=== PATIENT | female | born 1960 | race Caucasian/White ===

== ENCOUNTER 2017-06-22 12:32 | Emergency (ER) | payer BC, OTHER ==
[~2017-06-22] VITALS: Ht 165.1 cm; Wt 84.4 kg
[~2017-06-22 12:32] MED LIST: ASPI81TA21 PO; CRS/10 PO; MULT-506 PO
[2017-06-22 12:35] VITALS: TEMP 36.7; Ht 165.1 cm; Wt 84.4 kg
[2017-06-22] MEDS ORDERED: OXYCODONE/ACETAMINOPHEN 5-325 TAB PO ONE (13:45)
[2017-06-22] MEDS ORDERED: XYLOCAINE 1%/SOD BICARB 20 ML VIAL INFIL ONE (13:45)
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
[2017-06-22] MEDS ORDERED: OXYC-57 PO (15:26)
[2017-06-22 15:36] VITALS: BP 135/63; PULSE 72; O2SAT 95
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
== END 2017-06-22 15:37 | disposition home or self-care (01) ==
LOC: C.EDB 12:33 → C.EDD 15:37
DX: S52.134A Nondisplaced fracture of neck of right radius, initial encounter for closed fracture (principal); S61.412A Laceration without foreign body of left hand, initial encounter; V18.0XXA Pedal cycle driver injured in noncollision transport accident in nontraffic accident, initial encounter; E78.5 Hyperlipidemia, unspecified; Z90.710 Acquired absence of both cervix and uterus; Z79.82 Long term (current) use of aspirin; Z79.899 Other long term (current) drug therapy

== ENCOUNTER 2024-03-27 14:30 | Inpatient (IN) ==
--- NOTE | 2024-03-27 14:44 | ED Triage Note ---
Date of Service March 27, 2024 Provider in Triage Author: Ruma Jeronimo History of Present Illness This patient was briefly evaluated while in triage. An abbreviated physical exam was performed. This patient is a 63-year-old Female who presents to the ED for evaluation of abdominal pain. She had a telehealth appointment yesterday and they recommended she try Miralax which has not helped. She states it feels like a bloating/pressure in the lower center of her abdomen. She reports it is worse with BMs. Denies any fevers, vomiting, urinary symptoms. Physical Exam GENERAL: Non-toxic and in no acute distress. HEENT: Pupils equal. No obvious scleral icterus. HEART: Regular rate and rhythm. LUNGS: Clear to auscultation. No accessory muscle use. ABDOMEN: Soft, tenderness in the suprapubic region. NEURO: Alert and oriented. No obvious neurological deficits on quick neuro exam. Initial orders for labs and / or imaging were placed and patient was placed in the waiting area until a bed is available. Please see further documentation for the full ED course.
--- NOTE | 2024-03-27 16:13 | Emergency Department Note ---
ED Provider Note History of Present Illness Chief Complaint: Abdominal Pain Stated Complaint: ABD PAIN Time Seen by Provider: 03/27/24 15:47 Source: patient Mode of arrival: ambulatory Limitations: no limitations This patient is a 63-year-old female who presents to the emergency department for evaluation of abdominal pain. She states the pain started 2 days ago. Pain is in the center of the lower abdomen. She states that it feels like a pressure/bloating sensation. Pain increases with bowel movements. He denies any fevers, nausea/vomiting or urinary symptoms. She had a telehealth appointment yesterday and they told her to try MiraLAX which she has taken. She has had a bowel movement but states this has not helped her pain. Denies any history of similar symptoms. Home Medications Medication Instructions Recorded Confirmed Type aspirin 81 mg tablet,delayed 81 mg PO QAM 03/27/24 03/27/24 History release rosuvastatin 10 mg tablet 10 mg PO QAM 03/27/24 03/27/24 History Allergies Allergy/AdvReac Type Severity Reaction Status Date / Time No Known Allergies Allergy Unverified 03/27/24 18:30 Past Med/Surg History Problem List (Updated 03/27/24 @ 22:11 by Ruma Jeronimo PA-C) Intra-abdominal abscess (Acute) Abdominal pain Abdominal fluid collection HLD (hyperlipidemia) Surgical History (Updated 03/27/24 @ 20:09 by Keisha Yates PA-C) History of total abdominal hysterectomy Hx of colonoscopy Hx of repair of rotator cuff Family History (Updated 03/27/24 @ 20:09 by Keisha Yates PA-C) Other Breast cancer Diabetes Heart disease Social History Smoking Status: Never smoker Second Hand Exposure: No; Hx Alcohol Use: Yes Alcohol type: wine Hx Substance Use: No Preferred Language: Turkish Communication Ability: Effective Brownell Operator Required: No Beliefs That Will Affect Care: None Current Living Situation: Spouse Other Information That Helps Us Care for You: No Feels Safe at Home: Yes Safety Concerns: Feels Safe At This Time Assistive Devices: Glasses Physical Exam Vital Signs Vital Signs - 24 hr 03/27/24 14:41 03/27/24 17:20 03/27/24 17:21 Temperature 36.8 C Temperature Source Temporal Artery Scan Pulse Rate 65 Pulse Rate [Finger] 66 Pulse Rate from SpO2 Sensor Respiratory Rate 18 15 Respiratory Effort / Characteristics Non-Labored Spontaneous Respiratory Depth Normal Blood Pressure 151/71 H Blood Pressure [Left Arm] 163/74 H Blood Pressure Mean 97 Blood Pressure Mean [Left Arm] 103 Blood Pressure Position Sitting Pulse Oximetry 95 94 97 Oxygen Delivery Method Room Air Room Air Sepsis Recent Fever Within 48 Hours No Sepsis New/Unexplained Change in Mental Status No Sepsis Action Taken by Nursing No Action Required 03/27/24 18:46 03/27/24 18:46 03/27/24 18:50 Temperature Temperature Source Pulse Rate 56 L 59 L 66 Pulse Rate [Finger] Pulse Rate from SpO2 Sensor 58 L 66 Respiratory Rate 15 Respiratory Effort / Characteristics Respiratory Depth Blood Pressure Blood Pressure [Left Arm] Blood Pressure Mean Blood Pressure Mean [Left Arm] Blood Pressure Position Pulse Oximetry 97 99 Oxygen Delivery Method Sepsis Recent Fever Within 48 Hours Sepsis New/Unexplained Change in Mental Status Sepsis Action Taken by Nursing 03/27/24 19:00 03/27/24 19:10 03/27/24 19:25 Temperature Temperature Source Pulse Rate 57 L 63 72 Pulse Rate [Finger] Pulse Rate from SpO2 Sensor 57 L 65 73 Respiratory Rate 16 17 Respiratory Effort / Characteristics Respiratory Depth Blood Pressure Blood Pressure [Left Arm] Blood Pressure Mean Blood Pressure Mean [Left Arm] Blood Pressure Position Pulse Oximetry 99 98 96 Oxygen Delivery Method Sepsis Recent Fever Within 48 Hours Sepsis New/Unexplained Change in Mental Status Sepsis Action Taken by Nursing VITALS: Vitals are noted on the nurse's note and reviewed by myself. GENERAL: This is a 63-year-old female, in no acute distress, well-developed well-nourished. SKIN: The skin was without rashes. EYES: Pupils equal round and reactive to light and accommodation. MOUTH: Mucous membranes moist. NECK: Supple without nuchal rigidity. HEART: Regular rate and rhythm without murmurs gallops or rubs. LUNGS: Clear to auscultation bilaterally without wheezes, rales or rhonchi. ABDOMEN: Positive bowel sounds x 4. Soft, suprapubic tenderness to palpation. No guarding or rebound tenderness. NEURO: Patient was alert and oriented to person place and time. Course Consultations Consultation #1: Dr. Arreola - general surgery Consulted with Dr. Arreola and reviewed the CT scan with him. He recommended medical admission with antibiotics and IR consult. General surgery will also consult tomorrow. Administered Medications Discontinued Medications Piperacillin Sod/Tazobactam Sod (Zosyn) 4.5 gm in 100 mls @ 200 mls/hr IV NOW ONE Stop: 03/27/24 18:40 Last Infusion: 03/27/24 20:15 Dose: Infused Documented By: Admin: 03/27/24 18:34 Dose: 200 mls/hr Documented By: IBRAHIMA Ioversol (Optiray 320 100ml) 90 ml IV ONCE ONE Stop: 03/27/24 16:57 Last Admin: 03/27/24 16:56 Dose: 90 ml Documented By: NIC Medical Decision Making Differential Diagnosis Appendicitis, ovarian cyst, ovarian torsion, ectopic , TOA, PID, infections, diverticulitis, UTI, obstruction, mesenteric ischemia, aortic pathology, inflammatory bowel disease, renal colic, PUD, pancreatitis, biliary pathology, hernia, volvulus, constipation, as well as other pathologies. Laboratory Data Attestation: I reviewed the patient's lab results. 03/27/24 16:15 03/27/24 16:15 Lab Results 03/27/24 Range/Units 16:15 WBC 8.27 (4.8-10.8) K/ul RBC 4.41 (4.20-5.40) M/uL Hgb 13.4 (12.0-16.0) g/dl Hct 39.6 (37.0-47.0) % MCV 89.8 (80.0-100.0) fL MCH 30.4 (25.0-34.0) pg MCHC 33.8 (32.0-36.0) g/dL RDW Std Deviation 40.8 (36.4-46.3) fL RDW Coeff of Mary 12.3 (11.5-14.5) % Plt Count 268 (130-400) K/uL MPV 10.3 (9.4-12.4) fL Immature Gran % (Auto) 0.2 % Neut % (Auto) 62.3 % Lymph % (Auto) 26.5 % [place] % (Auto) 6.5 % Eos % (Auto) 4.0 % Baso % (Auto) 0.5 % Neut # (Auto) 5.15 (1.40-6.50) K/uL Lymph # (Auto) 2.19 (1.20-3.40) K/uL [place] # (Auto) 0.54 (0.11-0.59) K/uL Eos # (Auto) 0.33 (0.00-0.50) K/uL Baso # (Auto) 0.04 (0.00-0.20) K/uL Immature Gran # (Auto) 0.02 (0.01-0.20) K/uL Sodium 139 (136-145) mmol/L Potassium 3.9 (3.5-5.1) mmol/L Chloride 105 (98-107) mmol/L Carbon Dioxide 27 (21-32) mmol/L Anion Gap 7 (3-11) BUN 13 (6-23) mg/dl Creatinine 0.84 (0.6-1.2) mg/dl Est Cr Clr Drug Dosing 77.0 ml/min Est GFR ( Amer) 86.9 ml/min Est GFR (Non-Af Amer) 75.0 ml/min BUN/Creatinine Ratio 15.5 (10-20) Glucose 98 (70-99(Fasting)) mg/dl Calcium 9.0 (8.6-10.3) mg/dl Total Bilirubin 0.5 (0.2-1.0) mg/dl AST 24 (13-39) U/L ALT 20 (7-52) U/L Alkaline Phosphatase 69 (34-104) U/L Total Protein 7.5 (6.0-8.3) gm/dl Albumin 4.6 (3.4-5.0) gm/dl Globulin 2.9 (2.5-4.0) gm/dl Albumin/Globulin Ratio 1.6 (0.9-2) Lipase 43 (11-82) U/L Imaging Data Attestation: I personally reviewed and interpreted this imaging study as follows: Radiologist's Impression: Abdomen/Pelvis CT 03/27/24 14:44 CT SCAN OF THE ABDOMEN AND PELVIS WITH IV CONTRAST CLINICAL HISTORY: Lower abdominal pain. COMPARISON STUDY: Abdominal CT dated 09/10/2013. TECHNIQUE: Following the IV administration of 90 cc of Optiray 320, CT scan of the abdomen and pelvis is performed from the lung bases to the proximal femora. Images are reviewed in the axial, sagittal, and coronal planes. IV contrast was administered without complication. A dose lowering technique was utilized adhering to the principles of ALARA. CT DOSE: 1366.14 mGy.cm FINDINGS: Lung bases: The heart is normal in size and without pericardial effusion. A tiny hiatal hernia is noted. The lung bases are clear noting dependent scarring/atelectasis. Liver: The contrast-enhanced liver is normal in size, contour, and attenuation. Fatty infiltration is noted adjacent to the falciform ligament. There is no intrahepatic biliary ductal dilatation. The hepatic veins and portal veins are patent. Gallbladder: Unremarkable. Spleen: Normal in size and attenuation. Pancreas: Unremarkable. Adrenal glands: Unremarkable. Kidneys: The contrast enhanced kidneys are normal in size and without hydronephrosis. The kidneys enhance symmetrically. Abdominal vasculature: The abdominal aorta is normal in course and caliber noting [id number] atherosclerotic calcification. Bowel: There is no bowel obstruction. A small duodenal diverticulum is noted. The appendix is well-visualized and normal. Peritoneum: There is trace free fluid in the cul-de-sac. No intraperitoneal free air is identified. There is a fat-containing umbilical hernia. Lymphadenopathy: None. Pelvic viscera: The bladder is normal as visualized. The uterus is surgically absent. There is a minimal complex multiloculated fluid collection along the superior margin of the vaginal cough seen on axial image #307. This measures 5.0 x 4.1 x 6.0 cm in maximum dimension. The collection closely approximates and appears to communicate with the adjacent sigmoid colon. This is best seen on the reformatted images. Skeletal structures: There is mild lumbosacral spondylosis. No lytic or blastic lesions are seen. IMPRESSION: 1. There is a 6.0 cm minimally complex loculated fluid collection along the superior margin of the vaginal cuff. This is new from 09/10/2013 examination. The sterility of this collection cannot be evaluated by imaging and abscess is not excluded. 2. This collection closely approximates and appears to communicate with the adjacent sigmoid colon. A colovaginal fistula is not excluded. 3. Additional findings as above. ACT 112: Negative or not required by law. Electronically signed by: Josse Amin M.D. 03/27/2024 5:43 PM MDM Narrative This patient is a 63-year-old female who presents to the emergency department for evaluation of lower abdominal pain. Patient overall well-appearing, afebrile. Labs revealed no leukocytosis or anemia or concerning electrolyte abnormalities. CT performed and shows a fluid collection at the vaginal cuff with possible colovaginal fistula. I suspect that this fluid collection is an abscess given patient's new onset of pain. She was treated with a dose of Zosyn. I discussed the case with general surgery who recommended medical admission with IR and general surgery consultation. Discussed the case with [facility] service who agreed to evaluate patient for further care. Impression Intra-abdominal abscess Discharge Plan Visit Data Chief Complaint: Abdominal Pain Stated Complaint: ABD PAIN ED Provider: Kraig Reilly ED Midlevel Provider: Ruma Jeronimo Discharge Problem: Intra-abdominal abscess Patient Disposition: Admitted As Inpatient Discharge Instructions Interventions: ED Discharge Assessment Last Done: 03/27/24 20:24
[2024-03-27 16:28] LABS: Appearance Urine Clear (Clear); Bacteria Urine Automated None Seen (None Seen); Bilirubin Urine Negative (Negative); Blood Urine Negative (Negative); Cast Urine Automated 0-2 /lpf (0-2); Color Urine Yellow; Epithelial Cell Urine Auto 0-2 /hpf (0-2); Glucose Urine UA Negative (Negative); Ketones Urine Negative (Negative); Leukocyte Esterase Urine 3+ (Negative); Nitrite Urine Negative (Negative); Protein Urine Negative (Negative); RBC Urine Automated 0-2 /hpf (0-2); Specific Gravity Urine 1.005 (1.000-1.030); Urobilinogen Urine Negative (Negative)
[2024-03-27 16:29] LABS: Basophils # (auto) 0.04 K/uL (0.00-0.20); Basophils % (auto) 0.5 %; Eosinophils # (auto) 0.33 K/uL (0.00-0.50); Hematocrit (blood only) 39.6 % (37.0-47.0); Hemoglobin 13.4 g/dl (12.0-16.0); Immature Granulocytes # (auto) 0.02 K/uL (0.01-0.20); Immature Granulocytes % (auto) 0.2 %; Lymphocytes # (auto) 2.19 K/uL (1.20-3.40); Lymphocytes % (auto) 26.5 %; Mean Corpuscular Hemoglobin 30.4 pg (25.0-34.0); Mean Corpuscular Hgb Conc 33.8 g/dL (32.0-36.0); Mean Corpuscular Volume 89.8 fL (80.0-100.0); Mean Platelet Volume 10.3 fL (9.4-12.4); Monocytes # (auto) 0.54 K/uL (0.11-0.59); Monocytes % (auto) 6.5 %; Neutrophils # (auto) 5.15 K/uL (1.40-6.50); Neutrophils % (auto) 62.3 %; Platelet Count 268 K/uL (130-400); RDW Coefficient of Variation 12.3 % (11.5-14.5); RDW Standard Deviation 40.8 fL (36.4-46.3); Red Blood Count 4.41 M/uL (4.20-5.40); White Blood Count 8.27 K/ul (4.8-10.8)
[2024-03-27 16:45] LABS: Albumin Globulin Ratio 1.6 (0.9-2); Albumin Level 4.6 gm/dl (3.4-5.0); BUN Creatinine Ratio 15.5 (10-20); Bilirubin,Total 0.5 mg/dl (0.2-1.0); Est GFR (African American) 86.9 ml/min; Globulin 2.9 gm/dl (2.5-4.0); Potassium 3.9 mmol/L (3.5-5.1); Total Protein 7.5 gm/dl (6.0-8.3)
[2024-03-27] MEDS: OPTIRAY 320 100ml IV ONE (16:56)
--- NOTE | 2024-03-27 17:44 | CT Scan Report ---
CT SCAN OF THE ABDOMEN AND PELVIS WITH IV CONTRAST CLINICAL HISTORY: Lower abdominal pain. COMPARISON STUDY: Abdominal CT dated 09/10/2013. TECHNIQUE: Following the IV administration of 90 cc of Optiray 320, CT scan of the abdomen and pelvi s is performed from the lung bases to the proximal femora. Images are reviewed in the axial, sagittal , and coronal planes. IV contrast was administered without complication. A dose lowering technique wa s utilized adhering to the principles of ALARA. CT DOSE: 1366.14 mGy.cm FINDINGS: Lung bases: The heart is normal in size and without pericardial effusion. A tiny hiatal hernia is not ed. The lung bases are clear noting dependent scarring/atelectasis. Liver: The contrast-enhanced liver is normal in size, contour, and attenuation. Fatty infiltration is noted adjacent to the falciform ligament. There is no intrahepatic biliary ductal dilatation. The he patic veins and portal veins are patent. Gallbladder: Unremarkable. Spleen: Normal in size and attenuation. Pancreas: Unremarkable. Adrenal glands: Unremarkable. Kidneys: The contrast enhanced kidneys are normal in size and without hydronephrosis. The kidneys enh ance symmetrically. Abdominal vasculature: The abdominal aorta is normal in course and caliber noting [id number] at herosclerotic calcification. Bowel: There is no bowel obstruction. A small duodenal diverticulum is noted. The appendix is well-v isualized and normal. Peritoneum: There is trace free fluid in the cul-de-sac. No intraperitoneal free air is identified. T here is a fat-containing umbilical hernia. Lymphadenopathy: None. Pelvic viscera: The bladder is normal as visualized. The uterus is surgically absent. There is a mini mal complex multiloculated fluid collection along the superior margin of the vaginal cough seen on ax ial image #307. This measures 5.0 x 4.1 x 6.0 cm in maximum dimension. The collection closely approxi mates and appears to communicate with the adjacent sigmoid colon. This is best seen on the reformatte d images. Skeletal structures: There is mild lumbosacral spondylosis. No lytic or blastic lesions are seen. IMPRESSION: 1. There is a 6.0 cm minimally complex loculated fluid collection along the superior margin of the va ginal cuff. This is new from 09/10/2013 examination. The sterility of this collection cannot be evalu ated by imaging and abscess is not excluded. 2. This collection closely approximates and appears to communicate with the adjacent sigmoid colon. A colovaginal fistula is not excluded. 3. Additional findings as above. ACT 112: Negative or not required by law. Electronically signed by: Josse Amin M.D. 03/27/2024 5:43 PM
[2024-03-27] MEDS: PIPERACILLIN/TAZOBACTAM 4.5 GM/100 ML BAG IV ONE (18:34)
--- NOTE | 2024-03-27 19:12 | History & Physical Report ---
Date of Service March 27, 2024 Assessment & Plan (1) History of total abdominal hysterectomy: (2) Abdominal pain: (3) Abdominal fluid collection: (4) HLD (hyperlipidemia): Plan: History of total abdominal hysterectomy Abdominal pain Complex loculated fluid collection -Admit to [facility] -CT abdomen reviewed as above, showing 6 cm complex loculated fluid collection at the superior region of the vaginal cuff, concerning for possible abscess possible adjacent to the sigmoid colon/communicating with such -General surgery consulted, discussed with the ER plans for possible IR procedure tomorrow -N.p.o. after midnight for such -IV Zosyn started - no blood cultures were obtained in the ER, pt does not appear septic, WBC of 8.27, no lactate, VSS. Will get blood cultures now for completeness and preprocedurally - Check CXR 1 view and EKG for preop HLD - chronic, stable, continue rosuvastatin DVT ppx: teds, scds Lines: PIV x 1 FEN/GI: Regular diet, n.p.o. at midnight CODE: Full code Dispo: From home, likely to remain in the hospital x 1-2 days A total of 75 minutes were spent with greater than 50% of that time face to face with the patient, personally reviewing all current laboratories, imaging studies, past medication reconciliation, outpatient chart review, and discussion with specialists to collaborate care for the patient with attending. Please see attending documentation for corrections and/or additions. History of Present Illness Chief Complaint: Lower abdominal pain, pressure Primary Care Provider: Jareth Harden DO This is a 63 yo F with PMHx of hysterectomy in 2004, HLD who presents to the hospital with acute worsening lower abdominal pain and pressure. Patient states that she initially started feeling this abdominal pressure/pain in her pelvic region late last week. She went away with her over the weekend and has been overall doing well. She states in the past 24 hours she had significant worsening of pain and thought this was possible constipation, so had a telemedicine appointment and provider instructed her to use MiraLAX yesterday to help move her bowels. As her bowels move throughout the day yesterday she felt some improvement in pressure/pain specifically near anus, then worsening pain which came in waves. She denies any fever, chills or sweats. Denies any vaginal discharge, no blood in stool, no changes in urination habits. She reports sexual intercourse within the past week has not been painful. She denies any other abdominal surgical procedures other than hysterectomy over [address] abdomen pelvis is showing a 6.0 cm complex loculated fluid collection along the superior margin of the vaginal cuff. Abscess is not excluded. Colovaginal fistula is not excluded. This collection closely approximated and appears to communicate with the adjacent sigmoid colon. Allergies Allergy/AdvReac Type Severity Reaction Status Date / Time No Known Allergies Allergy Unverified 03/27/24 18:30 Home Medications Medication Instructions Recorded Confirmed Type aspirin 81 mg tablet,delayed 81 mg PO QAM 03/27/24 03/27/24 History release rosuvastatin 10 mg tablet 10 mg PO QAM 03/27/24 03/27/24 History Past Med/Surg History Problem List Intra-abdominal abscess (Acute) Abdominal pain Abdominal fluid collection HLD (hyperlipidemia) Surgical History History of total abdominal hysterectomy Hx of colonoscopy Hx of repair of rotator cuff Family History Other Breast cancer Diabetes Heart disease Social History Smoking Status: Never smoker Second Hand Exposure: No; Hx Alcohol Use: Yes Alcohol type: wine Hx Substance Use: No Preferred Language: Portuguese Communication Ability: Effective Jacquard Loom Card Changer Required: No Beliefs That Will Affect Care: None Current Living Situation: Spouse Other Information That Helps Us Care for You: No Feels Safe at Home: Yes Safety Concerns: Feels Safe At This Time Assistive Devices: None Review of Systems Review of Systems: Constitutional: No fever, sweats or chills Eyes: No diplopia, no worsening or blurred vision ENT: normal hearing, no trouble swallowing Respiratory: No cough, sputum, dyspnea at rest or on exertion Cardiovascular: No chest pain, tightness or palpitations Abdomen: + lower abdominal pain/pressure and pressure sensation near anus, no nausea, vomiting, diarrhea or constipation Musculoskeletal: No joint pain, calf pain, swelling Neurologic: No weakness, numbness/tingling, or balance problems Psychiatric: No anxiety or depression Skin: No rash or itch Physical Exam Physical Exam: General: awake, alert, no apparent distress, white female, BMI 32 Head: Normocephalic, atraumatic ENT: PERRL, EOMI, no pharyngeal exudate, mucous membranes moist Chest: Clear to auscultation, on room air, no adventitious breath sounds Cardiac: Regular rate and rhythm, no murmur, no JVD, normal peripheral pulses, good capillary refill Abdominal: NABS x 4 quadrants, soft, nondistended, nontender to palpation, no rebound or guarding Extremities: Normal inspection, no peripheral edema or erythema, calfs nontender to palpation Psych: Normal mood and affect Neuro: AAO x 3, strength intact bilaterally and rated 5/5, no motor deficits, speech is clear, no peripheral sensory deficits Results & Data Results & Data Vital Signs (Past 12 Hours) Vital Signs Temp Pulse Pulse Resp BP BP Pulse Ox 03/27/24 18:46 56 L 03/27/24 17:21 97 03/27/24 17:20 66 15 163/74 H 94 03/27/24 14:41 36.8 C 65 18 151/71 H 95 O2 Del Method 03/27/24 18:46 03/27/24 17:21 Room Air 03/27/24 17:20 03/27/24 14:41 Room Air Laboratory Results 03/27/24 Unknown Urine Culture - Pending Urine,Clean Catch 03/27/24 03/27/24 Unknown 16:15 WBC 8.27 RBC 4.41 Hgb 13.4 Hct 39.6 MCV 89.8 MCH 30.4 MCHC 33.8 RDW Std Deviation 40.8 RDW Coeff of Mary 12.3 Plt Count 268 MPV 10.3 Immature Gran % (Auto) 0.2 Neut % (Auto) 62.3 Lymph % (Auto) 26.5 Tillman % (Auto) 6.5 Eos % (Auto) 4.0 Baso % (Auto) 0.5 Neut # (Auto) 5.15 Lymph # (Auto) 2.19 Tillman # (Auto) 0.54 Eos # (Auto) 0.33 Baso # (Auto) 0.04 Immature Gran # (Auto) 0.02 Sodium 139 Potassium 3.9 Chloride 105 Carbon Dioxide 27 Anion Gap 7 BUN 13 Creatinine 0.84 Est Cr Clr Drug Dosing 77.0 Est GFR ( Amer) 86.9 Est GFR (Non-Af Amer) 75.0 BUN/Creatinine Ratio 15.5 Glucose 98 Calcium 9.0 Total Bilirubin 0.5 AST 24 ALT 20 Alkaline Phosphatase 69 Total Protein 7.5 Albumin 4.6 Globulin 2.9 Albumin/Globulin Ratio 1.6 Lipase 43 Urine Color Yellow Urine Appearance Clear Urine pH 6.0 Ur Specific Quincy 1.005 Urine Protein Negative Urine Glucose (UA) Negative Urine Ketones Negative Urine Blood Negative Urine Nitrite Negative Urine Bilirubin Negative Urine Urobilinogen Negative Ur Leukocyte Esterase 3+ H Urine WBC (Auto) 11-20 H Urine RBC (Auto) 0-2 U Hyaline Cast (Auto) 0-2 U Epithel Cells (Auto) 0-2 Urine Bacteria (Auto) None Seen Diagnostic Findings Abdomen/Pelvis CT 03/27/24 14:44 CT SCAN OF THE ABDOMEN AND PELVIS WITH IV CONTRAST CLINICAL HISTORY: Lower abdominal pain. COMPARISON STUDY: Abdominal CT dated 09/10/2013. TECHNIQUE: Following the IV administration of 90 cc of Optiray 320, CT scan of the abdomen and pelvis is performed from the lung bases to the proximal femora. Images are reviewed in the axial, sagittal, and coronal planes. IV contrast was administered without complication. A dose lowering technique was utilized adhering to the principles of ALARA. CT DOSE: 1366.14 mGy.cm FINDINGS: Lung bases: The heart is normal in size and without pericardial effusion. A tiny hiatal hernia is noted. The lung bases are clear noting dependent scarring/atelectasis. Liver: The contrast-enhanced liver is normal in size, contour, and attenuation. Fatty infiltration is noted adjacent to the falciform ligament. There is no intrahepatic biliary ductal dilatation. The hepatic veins and portal veins are patent. Gallbladder: Unremarkable. Spleen: Normal in size and attenuation. Pancreas: Unremarkable. Adrenal glands: Unremarkable. Kidneys: The contrast enhanced kidneys are normal in size and without hydronephrosis. The kidneys enhance symmetrically. Abdominal vasculature: The abdominal aorta is normal in course and caliber noting [id number] atherosclerotic calcification. Bowel: There is no bowel obstruction. A small duodenal diverticulum is noted. The appendix is well-visualized and normal. Peritoneum: There is trace free fluid in the cul-de-sac. No intraperitoneal free air is identified. There is a fat-containing umbilical hernia. Lymphadenopathy: None. Pelvic viscera: The bladder is normal as visualized. The uterus is surgically absent. There is a minimal complex multiloculated fluid collection along the superior margin of the vaginal cough seen on axial image #307. This measures 5.0 x 4.1 x 6.0 cm in maximum dimension. The collection closely approximates and appears to communicate with the adjacent sigmoid colon. This is best seen on the reformatted images. Skeletal structures: There is mild lumbosacral spondylosis. No lytic or blastic lesions are seen. IMPRESSION: 1. There is a 6.0 cm minimally complex loculated fluid collection along the superior margin of the vaginal cuff. This is new from 09/10/2013 examination. The sterility of this collection cannot be evaluated by imaging and abscess is not excluded. 2. This collection closely approximates and appears to communicate with the adjacent sigmoid colon. A colovaginal fistula is not excluded. 3. Additional findings as above. ACT 112: Negative or not required by law. Electronically signed by: Josse Amin M.D. 03/27/2024 5:43 PM Code Status & VTE Plan Code Status Full code - discussed with pt and at bedside Supervising Physician Co-Signing Physician Notes delayed entry date of service noted above Attending Addendum: care coordinated with IKE Sanders. please refer to her notes for full details, I agree with her notes patient seen and examined, records reviewed by myself as well on exam, patient seen, comfortable states abdominal pain seems to be improving no other symptoms VS noted and reviewed oriented x 3, not in distress, speaks in sentences with no effort nor accessory muscle use normal rate, regular rhythm, no murmurs clear breath sounds bilaterally non distended, soft, nontender no bipedal edema, erythema, warmth no neuro deficits all labs noted and reviewed ASSESSMENT AND PLAN Pelvic abscess IV Zosyn General surgery consultation for possible drainage Pain control other diagnoses and plan of care as per IKE Sanders's notes Edson Enrique MD
[2024-03-27] MEDS ORDERED: ACETAMINOPHEN 325 MG TAB PO PRN (20:44)
[2024-03-27] MEDS ORDERED: ONDANSETRON INJ 2 MG/ML 2 ML VIAL IV PRN (20:44)
[2024-03-27] MEDS: PIPERACILLIN/TAZOBACTAM 4.5 GM in DEXTROSE 5% MINI-B 100 ML IV SCH (23:03)
--- NOTE | 2024-03-28 07:36 | XRay Report ---
XR chest 1V portable HISTORY: preop COMPARISON: None. FINDINGS: The lungs are clear. Cardiac silhouette is normal in size. No pleural effusions. No pneumot horax. IMPRESSION: No acute process. ACT 112: Negative or not required by law. Electronically signed by: Sid Cisneros M.D. 03/28/2024 7:34 AM
[2024-03-28 07:55] LABS: Hematocrit (blood only) 37.6 % (37.0-47.0); Hemoglobin 12.6 g/dl (12.0-16.0); Mean Corpuscular Hemoglobin 29.9 pg (25.0-34.0); Mean Corpuscular Hgb Conc 33.5 g/dL (32.0-36.0); Mean Corpuscular Volume 89.3 fL (80.0-100.0); Mean Platelet Volume 10.7 fL (9.4-12.4); Platelet Count 252 K/uL (130-400); RDW Coefficient of Variation 12.4 % (11.5-14.5); RDW Standard Deviation 40.6 fL (36.4-46.3); Red Blood Count 4.21 M/uL (4.20-5.40); White Blood Count 7.74 K/ul (4.8-10.8)
[2024-03-28 08:07] LABS: BUN Creatinine Ratio 15.1 (10-20); Calcium 8.8 mg/dl (8.6-10.3); Creatinine Clr Calc Pharmacy 75.5 ml/min; Est GFR (African American) 84.5 ml/min; Est GFR (Non-African American) 72.9 ml/min; Potassium 4.2 mmol/L (3.5-5.1)
[2024-03-28] MEDS: ROSUVASTATIN CALCIUM 10 MG TAB PO SCH (08:28)
--- NOTE | 2024-03-28 08:30 | Surgery Consultation ---
Date of Consultation March 28, 2024 Assessment & Plan (1) Abdominal fluid collection: Her CT images and results were personally viewed and interpreted by myself She has a pelvic fluid collection without much appreciable colonic inflammation Will consult IR for possible percutaneous drainage If IR cannot drain area and sample fluid, would simply treat with ABX No plans for any surgical intervention or drainage Can have clear liquids after IR procedure today, or if they decide they are unable to drain Her labs and vitals are within normal limits Will follow History of Present Illness Reason for Consultation: Pelvic fluid collection Attending Physician: Funmi Desouza MD History of Present Illness This is a 63 yo female who presented to the ER yesterday with 2 days of lower abdominal/suprapubic abdominal pain. She described it as sharp, no radiation. No worsening or relieving factors. She denies any fevers or chills. She had a normal bowel movement yesterday. Denies any melena or hematochezia. Denies any vaginal discharge or foul odor. She had a colonoscopy in July 2023 that was normal other than for hemorrhoids. She denies any dysuria or incontinence. She had a hysterectomy and removal of one ovary. No other abdominal surgeries. Allergies Allergy/AdvReac Type Severity Reaction Status Date / Time No Known Allergies Allergy Unverified 03/27/24 18:30 Home Medications Medication Instructions Recorded Confirmed Type aspirin 81 mg tablet,delayed 81 mg PO QAM 03/27/24 03/27/24 History release rosuvastatin 10 mg tablet 10 mg PO QAM 03/27/24 03/27/24 History Patient History Surgical History History of total abdominal hysterectomy Hx of colonoscopy Hx of repair of rotator cuff Family History Other Breast cancer Diabetes Heart disease Social History Smoking Status: Never smoker Second Hand Exposure: No; Hx Alcohol Use: Yes Alcohol type: wine Hx Substance Use: No Preferred Language: Armenian Communication Ability: Effective Financial Services Officer Required: No Beliefs That Will Affect Care: None Current Living Situation: Spouse Other Information That Helps Us Care for You: No Feels Safe at Home: Yes Safety Concerns: Feels Safe At This Time Assistive Devices: Glasses Review of Systems Constitutional: no fever and no chills Eyes: no blind spots and no worsening vision Ear, Nose, Mouth, Throat: no ear pain and no hearing loss Respiratory: no cough and no dyspnea Cardiovascular: no chest pain and no dyspnea on exertion Gastrointestinal: + abdominal pain; no nausea, no vomiting , no constipation, no diarrhea/loose stools, no blood in stools and no melena Genitourinary: no dysuria and no urinary urgency Musculoskeletal: no back pain and no neck pain Integumentary: no acne, no skin ulcer and no erythema Neurologic: no gait abnormality and no headache(s) Psychiatric: no behavioral changes and no depression Hematologic / Lymphatic: no easy bleeding and no easy bruising Physical Exam Constitutional: WD/WN, vitals as above Eyes: PERRL, conjunctivae normal, anicteric sclerae ENMT: external ear and nose normal, oropharynx normal Neck: trachea midline, no thyromegaly Respiratory: normal respiratory effort, lungs clear to auscultation Cardiovascular: RRR, no murmur, no edema Gastrointestinal (Abdomen): Inspection/Auscultation: abdomen normal to inspection; abdomen not distended Percussion/Palpation: + abdomen tender (suprapubic) and abdomen soft; no guarding and no hernia Musculoskeletal: no cyanosis or clubbing, extremities motor strength 5/5 Skin: no rashes, warm and dry Neurologic: PERRL, EOMI, accommodation nl, no face palsy, no dysarthria Psychiatric: A+Ox3, euthymic affect Results & Data Vital Signs (Past 12 Hours) Vital Signs Temp Pulse Resp BP Pulse Ox O2 Del Method 03/28/24 07:42 36.7 C 53 L 18 107/68 96 Room Air 03/27/24 21:09 36.8 C 75 18 129/77 93 Room Air Diagnostic Findings CT SCAN OF THE ABDOMEN AND PELVIS WITH IV CONTRAST CLINICAL HISTORY: Lower abdominal pain. COMPARISON STUDY: Abdominal CT dated 09/10/2013. TECHNIQUE: Following the IV administration of 90 cc of Optiray 320, CT scan of the abdomen and pelvis is performed from the lung bases to the proximal femora. Images are reviewed in the axial, sagittal, and coronal planes. IV contrast was administered without complication. A dose lowering technique was utilized adhering to the principles of ALARA. CT DOSE: 1366.14 mGy.cm FINDINGS: Lung bases: The heart is normal in size and without pericardial effusion. A tiny hiatal hernia is noted. The lung bases are clear noting dependent scarring/atelectasis. Liver: The contrast-enhanced liver is normal in size, contour, and attenuation. Fatty infiltration is noted adjacent to the falciform ligament. There is no intrahepatic biliary ductal dilatation. The hepatic veins and portal veins are patent. Gallbladder: Unremarkable. Spleen: Normal in size and attenuation. Pancreas: Unremarkable. Adrenal glands: Unremarkable. Kidneys: The contrast enhanced kidneys are normal in size and without hydronephrosis. The kidneys enhance symmetrically. Abdominal vasculature: The abdominal aorta is normal in course and caliber noting [id number] atherosclerotic calcification. Bowel: There is no bowel obstruction. A small duodenal diverticulum is noted. The appendix is well-visualized and normal. Peritoneum: There is trace free fluid in the cul-de-sac. No intraperitoneal free air is identified. There is a fat-containing umbilical hernia. Lymphadenopathy: None. Pelvic viscera: The bladder is normal as visualized. The uterus is surgically absent. There is a minimal complex multiloculated fluid collection along the superior margin of the vaginal cough seen on axial image #307. This measures 5.0 x 4.1 x 6.0 cm in maximum dimension. The collection closely approximates and appears to communicate with the adjacent sigmoid colon. This is best seen on the reformatted images. Skeletal structures: There is mild lumbosacral spondylosis. No lytic or blastic lesions are seen. IMPRESSION: 1. There is a 6.0 cm minimally complex loculated fluid collection along the superior margin of the vaginal cuff. This is new from 09/10/2013 examination. The sterility of this collection cannot be evaluated by imaging and abscess is not excluded. 2. This collection closely approximates and appears to communicate with the adjacent sigmoid colon. A colovaginal fistula is not excluded. 3. Additional findings as above. PG Care Time/CCT Total # of Minutes Spent Total Time Spent with Patient: Total time spent is greater than 50% in coordination of care (as documented) at patient's floor/unit and/or counseling patient: Coding Level of Care Code 13237 IN/OBS CONSULT LVL 5,80M Diagnoses Abdominal fluid collection R18.8
[2024-03-28 10:21] LABS: INR 1.1 (0.9-1.1); Partial Thromboplastin Time 27 Seconds (21-31); Prothrombin Time 11.4 Seconds (9.0-12.0)
[2024-03-28] MEDS: ADVANCED PROBIOTIC 625 MG CAPSULE PO SCH (11:22)
[2024-03-28] MEDS: LIDOCAINE 1% LOCAL 20 ML VIAL ONE ×2 (14:51)
[2024-03-28] MEDS: fentaNYL citrate PF 100 MCG/2 ML VIAL ONE (14:52)
--- NOTE | 2024-03-28 15:38 | CT Scan Report ---
CT-guided pelvic abscess drain placement INDICATION: Pelvic fluid collection PROCEDURE: Procedure and risks were explained. Informed consent was obtained. A final timeout was com pleted. The patient was placed prone on the CT exam table. The left gluteal region was prepped and dr aped in sterile fashion. 1% lidocaine was utilized for skin anesthesia. Utilizing CT guidance, an 18-gauge needle was advanced into the pelvic fluid collection. A 0.035 Ampl joe wire was introduced through the entry needle and exchanged for an 8 Maori locking pigtail cathet er. Approximately 32 mL of a slightly cloudy yellow fluid was aspirated and a portion of the fluid wa s sent to the lab for analysis. The catheter was sutured to the skin with 2-0 Prolene and placed to g ravity bag drainage. Postprocedure CT scan shows adequate pigtail position with significant reduction of the pelvic fluid collection. The patient tolerated the procedure well. Vital signs will be monito red postprocedure. IMPRESSION: CT-guided pelvic abscess drain placement as above. Performed, dictated, and signed by Jeremy Robertson PA-C; to be co-signed by Dr. Sid Cisneros. Electronically signed by: Sid Cisneros M.D. 03/28/2024 4:04 PM
[2024-03-28] MEDS: traMADol HCL 50 MG TABLET PO PRN (16:23)
--- NOTE | 2024-03-28 16:31 | Hospitalist Progress Note ---
Date of Service March 28, 2024 Assessment & Plan (1) History of total abdominal hysterectomy: (2) Abdominal pain: (3) Abdominal fluid collection: (4) HLD (hyperlipidemia): Plan: per admitting IKE note with addendum: History of total abdominal hysterectomy Abdominal pain Complex loculated fluid collection -Admit to [facility] -CT abdomen reviewed as above, showing 6 cm complex loculated fluid collection at the superior region of the vaginal cuff, concerning for possible abscess possible adjacent to the sigmoid colon/communicating with such -General surgery consulted, discussed with the ER plans for possible IR procedure tomorrow -N.p.o. after midnight for such -IV Zosyn started - no blood cultures were obtained in the ER, pt does not appear septic, WBC of 8.27, no lactate, VSS. Will get blood cultures now for completeness and preprocedurally - Check CXR 1 view and EKG for preop 03/28 Status post drainage by IR with placement of catheter Drainage culture: Pending Blood culture: Pending Medically stable overall Continue IV Zosyn Appreciate general surgery and IR services input ID consulted HLD - chronic, stable, continue rosuvastatin DVT ppx: teds, scds Lines: PIV x 1 FEN/GI: Regular diet, n.p.o. at midnight CODE: Full code Disposition Anticipate discharge to home medically stable plan of care discussed with patient And her at the bedside in detail all questions answered they are understanding, agreeable, comfortable with the plan of care Admission and Anticipated Discharge Date Admission Date: March 27, 2024 Subjective Follow-up for pelvic abscess, etc. Seen resting in bed, comfortable, not in distress Status post drainage of abscess this morning with placement of catheter Minimal discomfort over the surgical site at this point No nausea vomiting Would like to advance diet No fevers or chills No other new symptoms Review of Systems Review of Systems: all noted and negative except for above Physical Exam Physical Exam: General- oriented x 3, not in distress, speaks in sentences with no effort or accessory muscle use Eyes- anicteric Neck- no JVD Lungs- clear breath sounds bilaterally, no rales/wheezes Heart- normal rate, regular rhythm; no murmurs Abdomen- normal bowel sounds, nondistended, soft, nontender Drain in place,no output yet Extremities- no pretibial edema, no calf tenderness Neuro- alert, oriented x 3; no gross focal neurologic deficits Skin- warm & dry Results & Data Results & Data Vital Signs (Past 12 Hours) Vital Signs Temp Pulse Resp BP Pulse Ox O2 Del Method 03/28/24 15:32 36.3 C L 60 18 105/66 96 Room Air 03/28/24 15:00 36.8 C 56 L 18 120/77 98 Room Air 03/28/24 14:25 36.8 C 60 16 124/60 95 Room Air 03/28/24 07:42 36.7 C 53 L 18 107/68 96 Room Air all noted and reviewed including below
--- OUTSIDE RECORDS SUMMARY | 2024-03-28 19:21 | External Medical Summary | Summary of Care ---
Author Name Unknown Organization [facility] Address [address] [place] [address] Phone [phone] Care Team Providers Care Floral Manager Name Role Phone Roberto Ngo DO Primary Care Provider [phone] Reason for Visit * Reason Onset Date Comments Medication Refill 01/22/2024 Encounter Details Date Type Department Care Team (Late st Contact Info) Description 01/22/2024 Refill Family Practice [facility] [address] [facility] [place] [address] Roberto Ngo DO [address] [place] [address] Mixed dyslipidemia Allergies No known active allergiesdocumented as of this encounter (statuses as of 01/23/2024) Medications Medication Sig Dispensed Refills Start Date End Date Status ASPIRIN 81 MG PO TABS two tabs daily 0 Active Fluticasone Propionate 50 MCG/ACT Nasal Suspension Administer 2 Sprays into each nostril daily. 54 g 3 03/10/2021 Active valACYclovir HCl 1 GM Oral Tablet (Valtrex)Indicatio ns:Hx of cold sores 2 tablets twice daily for one day with each outbreak 4 Tablet 11 06/03/2022 Active Omeprazole 40 MG Oral Capsule Delayed Release (PriLOSEC)Indicati ons:Muscle spasm of left shoulder Take 1 Capsule by mouth in the morning. 1 hour before the first meal of the day. 30 Capsule 5 05/03/2023 Active Additional Information Patient not taking.Reported on 06/13/2023 Ibuprofen 800 MG Oral Tablet (Motrin)Indication s:Muscle spasm of left shoulder Take 1 Tablet by mouth in the morning and 1 Tablet at noon and 1 Tablet before bedtime. with food for pain. 30 Tablet 1 05/03/2023 Active Rosuvastatin Calcium 10 MG Oral Tablet (Crestor)Indicatio ns:Mixed dyslipidemia Take 1 Tablet by mouth in the morning. 90 Tablet 0 01/23/2024 Active Rosuvastatin Calcium 10 MG Oral Tablet (Crestor)Indicatio ns:Mixed dyslipidemia Take by mouth 1 Tablet in the morning. 90 Tablet 3 03/04/2022 4 Discontinue d(Refill) documented as of this encounter (statuses as of 01/23/2024) Active Problems Problem Noted Date Diagnosed Date Family history of diabetes mellitus (DM) 012 Overview: Mom, dx in 50's Family history of ischemic heart disease 012 Overview: Mom - several MIs, late 60's. 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 Rotator cuff rupture 10/12/2006 documented as of this encounter (statuses as of 01/23/2024) Resolved Problems Problem Noted Date Diagnosed Date Resolved Date Mixed dyslipidemia 11/30/200510/19/ 9 Overview: Per Lipid Taxonomy. documented as of this encounter (statuses as of 01/23/2024) Immunizations Name Administration Dates Next Due COVID-19 mRNA, LNP-s, No Pre serve, 2-Dose Series (FlameStower) 01/13/2022,02/02/2021,01/12/2021 Covid-19, Mrna, Lnp-s, Pf, B ivalent, 30 Mcg, IM, 12 yrs and above (Pfizer) 11/16/2022 Pneumococcal Polysaccharide PPV23 (Pneumovax) 10/06/2007 Seasonal Influenza, PF, 6 M & above, IM , (FluLaval or Fluzone) 08/05/2023,07/14/2022,07/13/2021,07/07,08/20/2018,08/25/2017 Seasonal Influenza, Quadriva lent, No Preserve, IM 08/12/2019,07/24/2015 Seasonal Influenza, Split, I IV3, With Preserve, Inj 08/03/2007 TD - Tetanus/Diptheria (ADULT) 04/29/2001 TDAP (age 10 and older)(Boostrix) 06/03/2022 TDAP (age 11 and older)(Adacel) 06/21/2010 Zoster Vaccine Recombinant (Shingrix) 08/19/2021 ,06/15/2021 documented as of this encounter Social History Tobacco Use Types Packs/Day Years Used Date Smoking Tobacco: Never Smokeless Tobacco: Never Alcohol Use Standard Drinks/Week Comments Yes 0 (1 standard drink = 0.6 oz pur e alcohol) socially PHQ-2 Answer Date Recorded PHQ Adult Total Score 0 06/03/2022 Hunger Vital Sign Answer Date Recorded Within the past 12 months, y ou worried that your food would run out before you got the money to buy more. Never true 06/03/20 22 Within the past 12 months, t he food you bought just didn't last and you didn't have money to get more. Never true 06/03/2022 Sex and Gender Information Value Date Recorded Sex Assigned at Female 01/21/2019 6:36 PM EDT Gender Identity Female 01/21/2019 6:36 PM EDT Sexual Orientation Straight 01/21/2019 6: 36 PM EDT Job Start Date Occupation Industry Not on file Not on file Not on file documented as of this encounter Miscellaneous Notes * Telephone Encounter - Flavio Otero [facility] - 01/23/2024 5:04 PM EDTSigned Prescriptions: Disp Refills Rosuvastatin Calcium 10 MG Oral Tablet (Cr*90 Tab*0 Sig: Take 1 Tablet by mouth in the morning.Authorizing Provider: ROBERTO NGO User: FLAVIO OTERO * Telephone Encounter - Flavio Otero RP - 01/23/2024 5:03 PM EDT RX authorized. Zero refills given until labs needed in 02/2024. Thank you, Flavio Otero [facility] Clinical Pharmacist [facility] ([facility]) (formerly Telepharmacy) 01/23/24 5:03 PM [phone] * Telephone Encounter - Benji Schumacher, pathology specialist - 01/22/2024 4:49 PM EDT Did you pend patient's preferred pharmacy and medication before forwarding?yes Pharmacy: [facility] [id number]- [place] Pending Prescriptions: Disp Refills Rosuvastatin Calcium 10 MG Oral Tablet (C*90 Tab*3 Sig: Take 1 Tablet by mouth in the morning. Last Visit: 06/13/2023 (in office), 07/12/2023 (telemedicine) Next Visit: 06/14/2024 If no future appointments scheduled, and last appointment is greater than a year ago, please schedule patient for a follow-up appointment Last date the medication was ordered: 03/04/2022 Is this request for a controlled substance?No Urine Drug Screen:No results found for this or any previous visit. Patient Phone Numbers Labs: Lab Results Component Value Date/Time CREAT 0.95 05/05/2023 12:00 AM CREAT 0.8 12/12/2017 09:38 AM POTASSIUM 4.0 03/08/2023 12:00 AM POTASSIUM 4.0 02/09/2009 03:20 PM TSH 1.08 02/09/2009 03:20 PM LDLCALC 95 03/08/2023 12:00 AM LDLCALC 92 04/03/2018 08:50 AM LDLDIRECT NOT APPLICABLE 04/03/2018 08:50 AM ALT 20 02/09/2009 03:20 PM documented in this encounter Plan of Treatment Upcoming Encounters Date Type Department Care Team (Late st Contact Info) Description 06/14/2024 9:00 AM EDT Office Visit Family Practice [facility] [place] [address] [facility] [place] [address] Roberto Ngo, [address] [facility] [place] [address] Scheduled Procedures Name Priority Associated Diagnoses Date/Ti me COLONOSCOPY FLEXIBLE PROXIMAL DIAGNOSTIC Recall Hematochezia Health Maintenance Due Date Last Done Comments HIV Screening 1977 Hepatitis C Screening 1980 Cologuard 2007 Fecal Occult Blood Test 2007 Sigmoidoscopy 2007 Depression Screening 06/03/2023 06/03/2022 COVID-19 Vaccine ( season) 2023 11/16/2022, 01/13/2022, 02/02/2021, Additional history exists Mammogram 07/17/2024 07/17/2023, 06/30, 07/13/2021, Additional history exists Diabetes Screening 03/08/2026 03/08/2023, 0 04/03/2018, 04/28/2015, Additional history exists Lipid Panel 03/08/2028 03/08/2023, 0602/2018, 02/07/2008, Additional history exists DTaP,Tdap,and Td Vaccines (4 - Td or Tdap) 06/03/2032 06/03/2022, 01/18/2011, 06/21/2010, Additional history exists Colonoscopy 07/31/2033 07/31/2023, 11/2022, 04/17/2014, Additional history exists Colorectal Cancer Screening 07/31/2033 Pneumococcal Vaccine: Pediatrics (0 to 5 Years) and At-Risk Patients (6 to 64 Years) Aged Out 10/06/2007 No longer eligible based on patient's age to complete this topic Zoster Vaccines Completed 08/19/2021, 06/15/2021 Influenza Vaccine (FLU shot) Completed 04/2023, 07/14/2022, 07/13/2021, Additional history exists GARDASIL-HPV IMMUNIZATION SERIES Aged Out No longer eligible based on patient's age to complete this topic Hepatitis B Aged Out No longer eligi ble based on patient's age to complete this topic MENINGOCOCCAL (MENACTRA/MENVEO) Aged Out No longer eligible based on patient's age to complete this topic documented as of this encounter Medical Devices Implanted Type Area Sparmaker Device Identifier Shelf Expiration Date Model / Serial / Lot Forehd End 3.0 Trpl [id number] - [id number] - [id number] Implanted:Qty: 1 on 01/28/2019 by Brittnee Decker MD at OR [facility] Right: Head [employer] 10/03/2021 CFD-010-016 7 / [id number] / [id number] Forehd End 3.0 Trpl [id number] - [id number] - [id number] Implanted:Qty: 1 on 01/28/2019 by Brittnee Decker MD at OR [facility] Left: Head [employer] 10/03/2021 CFD-010-016 7 / [id number] / [id number] documented as of this encounter Visit Diagnoses Diagnosis Mixed dyslipidemia Mixed hyperlipidemia documented in this encounter Care Teams Floral Manager Relationship Specialty Start Date End Date Roberto Ngo DO [address] [place] [address] PCP - General Family Medicine 06/21/21 documented as of this encounter
--- OUTSIDE RECORDS SUMMARY | 2024-03-28 19:21 | External Medical Summary | Summary of Care ---
Author Name Unknown Organization [facility] Address [address] [place] [address] Phone [phone] Care Team Providers Care Pharmaceutical Physician Name Role Phone FinaJareth Edy MARCOS Primary Care Provider [phone] Reason for Visit * Reason Comments Acute Encounter Details Date Type Department Care Team (Late st Contact Info) Description 03/26/2024 4:40 PM EDT Telemedicine Family Practice [facility] [address] [facility] [address] Esme Johnson CRNP [address] [facility] [place] [address] Acute abdominal pain*; Constipation, unspecified constipation type Allergies No known active allergiesdocumented as of this encounter (statuses as of 03/26/2024) Medications Medication Sig Dispensed Refills Start Date End Date Status ASPIRIN 81 MG PO TABS two tabs daily Active Fluticasone Propionate 50 MCG/ACT Nasal Suspension Administer 2 Sprays into each nostril daily. 54 g 3 03/10/2021 Active valACYclovir HCl 1 GM Oral Tablet (Valtrex)Indication s:Hx of cold sores 2 tablets twice daily for one day with each outbreak 4 Tablet 11 06/03/2022 Active Omeprazole 40 MG Oral Capsule Delayed Release (PriLOSEC)Indicatio ns:Muscle spasm of left shoulder Take 1 Capsule by mouth in the morning. 1 hour before the first meal of the day. 30 Capsule 5 05/03/2023 Active Additional Information Patient not taking.Reported on 06/13/2023 Ibuprofen 800 MG Oral Tablet (Motrin)Indications :Muscle spasm of left shoulder Take 1 Tablet by mouth in the morning and 1 Tablet at noon and 1 Tablet before bedtime. with food for pain. 30 Tablet 1 05/03/2023 Active Rosuvastatin Calcium 10 MG Oral Tablet (Crestor)Indication s:Mixed dyslipidemia Take 1 Tablet by mouth in the morning. 90 Tablet 01/23/2024 Active documented as of this encounter (statuses as of 03/26/2024) Active Problems Problem Noted Date Diagnosed Date Acute abdominal pain 03/26/2024 Constipation 03/26/2024 Family history of diabetes mellitus (DM) 012 Overview: Mom, dx in 50's Family history of ischemic heart disease 012 Overview: Mom - several MIs, late 60's. 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 Rotator cuff rupture 10/12/2006 documented as of this encounter (statuses as of 03/26/2024) Resolved Problems Problem Noted Date Diagnosed Date Resolved Date Mixed dyslipidemia 11/30/2005 9 Overview: Per Lipid Taxonomy. documented as of this encounter (statuses as of 03/26/2024) Immunizations Name Administration Dates Next Due COVID-19 mRNA, LNP-s, No Pre serve, 2-Dose Series (Aivo) 01/13/2022,02/02/2021,01/12/2021 Covid-19, Mrna, Lnp-s, Pf, B ivalent, 30 Mcg, IM, 12 yrs and above (Aivo) 11/16/2022 Pneumococcal Polysaccharide PPV23 (Pneumovax) 10/06/2007 Seasonal [...] on file documented as of this encounter Progress Notes * Esme Johnson CRNP - 03/26/2024 4:17 PM EDT Images from the original note were not included. Acute Family Medicine Visit Patient location: HOME. I was in a hospital or clinic location. After connecting through [employer], patient was verified with two unique identifiers. Patient (or authorized legal customer contact representative) wasthen informed that this was a Telemedicine visit and being conducted confidentially over secure lines. Methods to assure confidentiality were taken. Patient acknowledged consent and understanding of privacy and security of the Telemedicine visit. The patient agreed to participate. CC: abdominal pain. History of Present Illness: Zoila Acuna is a 63 year old female presenting with complaints of abdominal pain. This pain started yesterday. Feels like pressure pain. Sometimes a sharp pain. Feels bloated and constipation. LastBM- no blood or diarrhea. There was straining. She rates the pain 9-10 When she has bm she feels better. Denies nausea, vomiting or fever. Normally has bm daily. Still has appendix. 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 - [employer] - has to be there 2/wkMarriedSon age 25 in [place] [facility] [employer] Strain: Not on file Food Insecurity: No Food Insecurity (06/03/2022) Hunger Vital Sign Worried About Running Out of Food in the Last Year: Never true Ran Out of Food in the Last Year: Never true Transportation Needs: Not on file Physical Activity: Not on file Stress: Not on file Social Connections: Not on file Intimate Partner Violence: Not on file Housing Stability: Not on file PMH: Past Medical History: Diagnosis Date Bronchitis Gastric ulcer GERD (gastroesophageal reflux disease) Mixed dyslipidemia Vertigo Past Surgical History: Procedure Laterality Date COLONOSCOPY 2008 repeat 2013 COLONOSCOPY, DIAGNOSTIC (RECTUM) 04/17/2014 COLONOSCOPY FLEXIBLE PROXIMAL DIAGNOSTIC performed by Greg Chung MD at ENDOSCOPY [facility] COLONOSCOPY, DIAGNOSTIC (RECTUM) 07/31/2023 COLONOSCOPY FLEXIBLE PROXIMAL DIAGNOSTIC performed by Will Garnett MD at ENDOSCOPY [facility] COLPOSCPY CERVIX UP ADJ VAGN 03/15/07 COLPOSCOPY CERVIX performed by VANNESA STEWART at OR [facility] DILATION AND CURETTAGE (D&C) 03/15/07 DILATION AND CURETTAGE performed by VANNESA STEWART at OR [facility] HYSTEROSCOPY;ENDOMETRIAL ABLAT 03/15/07 HYSTEROSCOPY ENDOMETRIAL ABLATION performed by VANNESA STEWART at OR [facility] INFORMATION Left 05/21/2015 left prepatellar bursae excision NASAL SURGERY PROCEDURE NEC deviated septum REMOVAL OF PAROTID GLAND/TUMOR 2011 left superficial parotidectomy for pleomorphic adenoma REPAIR DROOPING EYEBROW N/A 01/28/2019 REPAIR OF BROW PTOSIS performed by Brittnee Dceker [place] [facility] REVISE UPPER EYELID Bilateral 01/28/2019 BLEPHAROPLASTY UPPER EYELID performed by Brittnee Decker MD at [facility] TOTAL ABD HYSTERECTOMY W/WO REMOVAL OF TUBE(S) 10/04/07 RSO, benign uterus; pap/colpo with LGSIL Current Outpatient Medications Medication Sig Dispense Refill Rosuvastatin Calcium 10 MG Oral Tablet (Crestor) Take 1 Tablet by mouth in the morning. 90 Tablet 0 Ibuprofen 800 MG Oral Tablet (Motrin) Take 1 Tablet by mouth in the morning and 1 Tablet at noon and 1 Tablet before bedtime. with food for pain. 30 Tablet 1 Omeprazole 40 MG Oral Capsule Delayed Release (PriLOSEC) Take 1 Capsule by mouth in the morning. 1 hour before the first meal of the day. (Patient not taking: Reported on 06/13/2023) 30 Capsule 5 valACYclovir HCl 1 GM Oral Tablet (Valtrex) 2 tablets twice daily for one day with each outbreak 4 Tablet 11 Fluticasone Propionate 50 MCG/ACT Nasal Suspension Administer 2 Sprays into each nostril daily. 54 g 3 ASPIRIN 81 MG PO TABS two tabs daily No current facility-administered medications for this visit. Review of patient's allergies indicates: No Known Allergies Most Recent Immunizations Administered Date(s) Administered COVID-19 mRNA, LNP-s, No Preserve, 2-Dose Series (Aivo) 01/13/2022 Covid-19, Mrna, Lnp-s, Pf, Bivalent, 30 Mcg, IM, 12 yrs and above (Pfizer) 11/16/2022 Pneumococcal Polysaccharide PPV23 (Pneumovax) 10/06/2007 Seasonal Influenza, PF, 6 M & above, IM , (FluLaval or Fluzone) 08/05/2023 Seasonal Influenza, Quadrivalent, No Preserve, IM 08/12/2019 Seasonal Influenza, Split, IIV3, With Preserve, Inj 07/29/2014 TD - Tetanus/Diptheria (ADULT) 04/29/2001 TDAP (age 10 and older)(Boostrix) 06/03/2022 TDAP (age 11 and older)(Adacel) 01/18/2011 Zoster Vaccine Recombinant (Shingrix) 08/19/2021 Review of Systems: Review of Systems Constitutional: Negative for fatigue and fever. Physical Exam: There were no vitals taken for this visit. Physical Exam HENT: Head: Normocephalic. Pulmonary: Effort: Pulmonary effort is normal. Abdominal: Comments: Pain per patient report Neurological: General: No focal deficit present. Mental Status: She is alert and oriented to person, place, and time. Psychiatric: Mood and Affect: Mood normal. Behavior: Behavior normal. Thought Content: Thought content normal. Judgment: Judgment normal. Assessment and Plan: 1. Acute abdominal pain PRESENT FOR 24 HOURS FEELS BLOATED AND CONSTIPATED RECOMMEND ed IF NOT IMPROVED AFTER MIRALAX 2. Constipation, unspecified constipation type ADD MIRALAX I have advised the patient to call our office incase of any worsening or new symptoms. I spent a total of 20-29 minutes (exact time 20 mins) on the date of service in preparation, delivery, and documentation of the care provided to Zoila Acuna excluding any time spent in the performance of separately billed services. LENO Mora, [facility] documented in this encounter Plan of Treatment Upcoming Encounters Date Type Department Care Team (Late st Contact Info) Description 06/14/2024 9:00 AM EDT Office Visit Family Practice [facility] [place] [address] [facility] [place] [address] Jareth Harden DO [address] [facility] [place] [address] Scheduled Procedures Name Priority Associated Diagnoses Date/Ti [...] Additional history exists Lipid Panel 03/08/2028 03/08/2023, 02/2018, 02/07/2008, Additional history exists DTaP,Tdap,and Td Vaccines [...] this encounter Medical Devices Implanted Type Area Numerical Control Machine Operator Device Identifier Shelf Expiration Date Model / Serial / Lot Forehd End 3.0 Trpl [id number] - [id number] - [id number] Implanted:Qty: 1 on 01/28/2019 by Brittnee Decker [place] [facility] Right: Head [employer] 10/03/2021 CFD-010-016 7 / [id number] / [id number] Forehd End 3.0 Trpl [id number] - [id number] - [id number] Implanted:Qty: 1 on 01/28/2019 by Brittnee Decker MD [place] [facility] Left: Head [employer] 10/03/2021 CFD-010-016 7 / [id number] / [id number] documented as of this encounter Visit Diagnoses Diagnosis Acute abdominal pain- Primary Abdominal pain, unspecified site Constipation, unspecified constipation type documented in this encounter Care Teams Pharmaceutical Physician Relationship Specialty Start Date End Date Jareth Harden DO [facility] [place] [address] PCP - General Family Medicine 06/21/21 documented as of this encounter
[2024-03-28] MEDS: KETOROLAC 30 MG/ML VIAL IV PRN (20:47)
[2024-03-28] MEDS: diphenhydrAMINE Capsule 25 MG CAP PO PRN (23:16)
[2024-03-29 06:18] LABS: Basophils # (auto) 0.05 K/uL (0.00-0.20); Basophils % (auto) 0.6 %; Eosinophils % (auto) 3.7 %; Hematocrit (blood only) 37.2 % (37.0-47.0); Hemoglobin 12.3 g/dl (12.0-16.0); Immature Granulocytes # (auto) 0.03 K/uL (0.01-0.20); Immature Granulocytes % (auto) 0.4 %; Lymphocytes # (auto) 2.29 K/uL (1.20-3.40); Lymphocytes % (auto) 28.2 %; Mean Corpuscular Hemoglobin 29.9 pg (25.0-34.0); Mean Corpuscular Hgb Conc 33.1 g/dL (32.0-36.0); Mean Corpuscular Volume 90.5 fL (80.0-100.0); Mean Platelet Volume 10.5 fL (9.4-12.4); Monocytes # (auto) 0.58 K/uL (0.11-0.59); Monocytes % (auto) 7.1 %; Neutrophils # (auto) 4.87 K/uL (1.40-6.50); Platelet Count 243 K/uL (130-400); RDW Coefficient of Variation 12.3 % (11.5-14.5); RDW Standard Deviation 40.5 fL (36.4-46.3); Red Blood Count 4.11 M/uL (4.20-5.40); White Blood Count 8.12 K/ul (4.8-10.8)
[2024-03-29 06:38] LABS: BUN Creatinine Ratio 14.3 (10-20); Calcium 8.8 mg/dl (8.6-10.3); Creatinine Clr Calc Pharmacy 66.3 ml/min; Est GFR (African American) 72.2 ml/min; Est GFR (Non-African American) 62.3 ml/min
--- NOTE | 2024-03-29 09:11 | Surgery Progress Note ---
Date of Service March 29, 2024 Assessment & Plan (1) Intra-abdominal abscess: Plan: Pt here w/ intraop fluid collection IR placed drain yesterday, 32cc, scant drainage in bag now. Cultures are pending WBC 8. Vitals stable and pt is afebrile ID has been consulted for abx guidance/recommendations Diet is tolerated Okay for home later today if abx plan laid out Home w/ drain in place and f/u in the office with Dr. Arreola in 1-2 weeks Admission and Anticipated Discharge Date Admission Date: March 27, 2024 Subjective Patient reports feeling well. No fevers or abdominal pain. Some diarrhea. She is eating well. Physical Exam Physical Exam: awake/alert, no distress Gastrointestinal (Abdomen): Inspection/Auscultation: abdomen not distended Percussion/Palpation: abdomen soft; abdomen nontender IR drain with scant amount of output Results & Data Vital Signs (Past 12 Hours) Vital Signs Temp Pulse Pulse Resp BP Pulse Ox O2 Del Method 03/29/24 09:02 97.9 F 64 14 120/77 94 Room Air 03/29/24 07:11 98.4 F 59 L 18 103/66 94 Room Air PG Care Time/CCT Total # of Minutes Spent Total Time Spent with Patient: Total time spent is greater than 50% in coordination of care (as documented) at patient's floor/unit and/or counseling patient: Coding Level of Care Code 87174 SUB INP/OBS CARE 25MIN Diagnoses Intra-abdominal abscess K65.1
--- NOTE | 2024-03-29 13:25 | Discharge Summary ---
Discharge Summary Date of Service March 29, 2024 Principal Dx & Hospital Course #1 = Principal Diagnosis (1) History of total abdominal hysterectomy: (2) Abdominal pain: (3) Abdominal fluid collection: (4) HLD (hyperlipidemia): Plan Pt is a 63yoF with PMHx of hysterectomy in 2004, HLD who presents to the hospital with acute worsening lower abdominal pain and pressure. History of total abdominal hysterectomy Abdominal pain Complex loculated fluid collection CT abdomen/pelvis showed 6 cm complex loculated fluid collection at the superior region of the vaginal cuff, concerning for possible abscess vs. colovaginal fistula. General surgery consulted, on admission advised IR procedure the next day. Pt underwent IR drainage with very little being drained and a catheter was placed for further drainage. Cultures from the procedure were pending on discharge Blood cultures x2 sets NGTD Urine Cx no significant growth She was treated with IV Zosyn and Infectious Disease was consulted Per Infectious Disease: "discontinue Zosyn Augmentin 875 q.8 hours for 4 weeks Ciprofloxacin 500 mg p.o. q.12 hours for [address] scan with oral and IV contrast of the abdomen and pelvis in 2-3 weeks follow-up Infectious Disease appointment, telehealth okay after scan is completed in approximately 3-4 weeks" Per ID Dr Mann, ID will follow up on cultures Per General Surgery: Home w/ drain in place and f/u in the office with Dr. Arreola in 1-2 weeks Please ensure followup with ID and General Surgery HLD - chronic, stable, continue rosuvastatin Notes For Next Care Provider Infectious disease recommends a repeat CT scan in 2 weeks and a telemedicine followup appointment that they scheduled. ID will follow up on the pending cultures. General Surgery recommends discharge home with the drain and following up with surgeon Dr Arreola in 1-2 weeks. Medication Changes From Visit Per ID: Augmentin 875mg TID x 4 weeks Cipro 500mg BID x 4 weeks Also prescribed daily probiotic Admission HPI Per Admitting Provider This is a 63 yo F with PMHx of hysterectomy in 2004, HLD who presents to the hospital with acute worsening lower abdominal pain and pressure. Patient states that she initially started feeling this abdominal pressure/pain in her pelvic region late last week. She went away with her over the weekend and has been overall doing well. She states in the past 24 hours she had significant worsening of pain and thought this was possible constipation, so had a telemedicine appointment and provider instructed her to use MiraLAX yesterday to help move her bowels. As her bowels move throughout the day yesterday she felt some improvement in pressure/pain specifically near anus, then worsening pain which came in waves. She denies any fever, chills or sweats. Denies any vaginal discharge, no blood in stool, no changes in urination habits. She reports sexual intercourse within the past week has not been painful. She denies any other abdominal surgical procedures other than hysterectomy over [address] abdomen pelvis is showing a 6.0 cm complex loculated fluid collection along the superior margin of the vaginal cuff. Abscess is not excluded. Colovaginal fistula is not excluded. This collection closely approximated and appears to communicate with the adjacent sigmoid colon. Admission Exam Per Admitting Provider General: awake, alert, no apparent distress, white female, BMI 32 Head: Normocephalic, atraumatic ENT: PERRL, EOMI, no pharyngeal exudate, mucous membranes moist Chest: Clear to auscultation, on room air, no adventitious breath sounds Cardiac: Regular rate and rhythm, no murmur, no JVD, normal peripheral pulses, good capillary refill Abdominal: NABS x 4 quadrants, soft, nondistended, nontender to palpation, no rebound or guarding Extremities: Normal inspection, no peripheral edema or erythema, calfs nontender to palpation Psych: Normal mood and affect Neuro: AAO x 3, strength intact bilaterally and rated 5/5, no motor deficits, speech is clear, no peripheral sensory deficits Discharge Exam General: Alert, oriented. No acute distress Skin: No noted rashes or bruises, drain in place Psych: Appropriate mood and affect Neuro: No gross deficits HEENT: NC/AT CV: RRR Resp: Breath sounds clear bilaterally, no increased effort of breathing. Abdomen: Soft, nontender, nondistended Extremities: No edema in lower extremities bilaterally. Updated Medication List Medication Instructions Recorded Confirmed Type aspirin 81 mg tablet,delayed 81 mg PO QAM 03/27/24 03/27/24 History release rosuvastatin 10 mg tablet 10 mg PO QAM 03/27/24 03/27/24 History Saccharomyces boulardii 250 mg 250 mg PO DAILY #30 caps 03/29/24 Rx capsule (Daily Probiotic (S. boulardii)) ciprofloxacin HCl 500 mg tablet 500 mg PO BID #60 tabs 03/29/24 Rx amoxicillin 875 mg-potassium 1 tab PO Q8H #90 tabs 03/31/24 Rx clavulanate 125 mg tablet Hospital Stay Data Consultations 03/27/24 19:41 ED Decision to Admit Stat 03/27/24 19:44 ED Decision to Admit Stat 03/27/24 20:44 Consult General Surgery Routine 03/28/24 10:07 Consult Infectious Diseases Routine Diagnostic Imagining Performed 03/27/24 14:44 CT abd pelvis IV con only Stat 03/28/24 09:[address] periton/retro w/gdnce Routine Abdomen/Pelvis CT 03/27/24 14:44 CT SCAN OF THE ABDOMEN AND PELVIS WITH IV CONTRAST CLINICAL HISTORY: Lower abdominal pain. COMPARISON STUDY: Abdominal CT dated 09/10/2013. TECHNIQUE: Following the IV administration of 90 cc of Optiray 320, CT scan of the abdomen and pelvis is performed from the lung bases to the proximal femora. Images are reviewed in the axial, sagittal, and coronal planes. IV contrast was administered without complication. A dose lowering technique was utilized adhering to the principles of ALARA. CT DOSE: 1366.14 mGy.cm FINDINGS: Lung bases: The heart is normal in size and without pericardial effusion. A tiny hiatal hernia is noted. The lung bases are clear noting dependent scarring/atelectasis. Liver: The contrast-enhanced liver is normal in size, contour, and attenuation. Fatty infiltration is noted adjacent to the falciform ligament. There is no intrahepatic biliary ductal dilatation. The hepatic veins and portal veins are patent. Gallbladder: Unremarkable. Spleen: Normal in size and attenuation. Pancreas: Unremarkable. Adrenal glands: Unremarkable. Kidneys: The contrast enhanced kidneys are normal in size and without hydronephrosis. The kidneys enhance symmetrically. Abdominal vasculature: The abdominal aorta is normal in course and caliber noting [id number] atherosclerotic calcification. Bowel: There is no bowel obstruction. A small duodenal diverticulum is noted. The appendix is well-visualized and normal. Peritoneum: There is trace free fluid in the cul-de-sac. No intraperitoneal free air is identified. There is a fat-containing umbilical hernia. Lymphadenopathy: None. Pelvic viscera: The bladder is normal as visualized. The uterus is surgically absent. There is a minimal complex multiloculated fluid collection along the superior margin of the vaginal cough seen on axial image #307. This measures 5.0 x 4.1 x 6.0 cm in maximum dimension. The collection closely approximates and appears to communicate with the adjacent sigmoid colon. This is best seen on the reformatted images. Skeletal structures: There is mild lumbosacral spondylosis. No lytic or blastic lesions are seen. IMPRESSION: 1. There is a 6.0 cm minimally complex loculated fluid collection along the superior margin of the vaginal cuff. This is new from 09/10/2013 examination. The sterility of this collection cannot be evaluated by imaging and abscess is not excluded. 2. This collection closely approximates and appears to communicate with the adjacent sigmoid colon. A colovaginal fistula is not excluded. 3. Additional findings as above. ACT 112: Negative or not required by law. Electronically signed by: Josse Amin M.D. 03/27/2024 5:43 PM Chest X-Ray 03/27/24 20:15 XR chest 1V portable HISTORY: preop COMPARISON: None. FINDINGS: The lungs are clear. Cardiac silhouette is normal in size. No pleural effusions. No pneumothorax. IMPRESSION: No acute process. ACT 112: Negative or not required by law. Electronically signed by: Sid Cisneros M.D. 03/28/2024 7:34 AM Drainage Catheter Insertion 03/28/24 09:04 CT-guided pelvic abscess drain placement INDICATION: Pelvic fluid collection PROCEDURE: Procedure and risks were explained. Informed consent was obtained. A final timeout was completed. The patient was placed prone on the CT exam table. The left gluteal region was prepped and draped in sterile fashion. 1% lidocaine was utilized for skin anesthesia. Utilizing CT guidance, an 18-gauge needle was advanced into the pelvic fluid collection. A 0.035 Amplatz wire was introduced through the entry needle and exchanged for an 8 Frisian locking pigtail catheter. Approximately 32 mL of a slightly cloudy yellow fluid was aspirated and a portion of the fluid was sent to the lab for analysis. The catheter was sutured to the skin with 2-0 Prolene and placed to gravity bag drainage. Postprocedure CT scan shows adequate pigtail position with significant reduction of the pelvic fluid collection. The patient tolerated the procedure well. Vital signs will be monitored postprocedure. IMPRESSION: CT-guided pelvic abscess drain placement as above. Performed, dictated, and signed by Jeremy Robertson PA-C; to be co-signed by Dr. Sid Cisneros. Electronically signed by: Sid Cisneros M.D. 03/28/2024 4:04 PM Discharge Instructions Given to Patient (Per Discharging Provider) Zoila, You were seen by Infectious Disease and they are recommending discharge home. They recommend discharge home with the two antibiotics Augmentin and Ciprofloxacin for 4 WEEKS. Please also take it with the probiotic prescribed. Infectious disease also recommends a repeat CT scan in 2 weeks and a telemedicine followup appointment that they scheduled for you. They will follow up on the pending cultures. General Surgery recommends discharge home with the drain and following up with surgeon Dr Arreola in 1-2 weeks. Please keep close follow up with your primary care provider after discharge. Please do not hesitate to come back to the emergency room if your symptoms worsen or return. It was a pleasure taking care of you while you were here. Total Time Total Time Spent Total Time Spent (In Minutes): 75
--- NOTE | 2024-03-29 14:37 | Infectious Disease Consult ---
Date of Service March 29, 2024 Telehealth Information I performed this visit using a real-time telehealth connection between my location and the patients location ([facility]). After connecting through interactive tele-video, patient was identified by name and date of and/or wristband check.Patient (or authorized healthcare major account representative) was informed that this was a telemedicine visit and it was being conducted confidentially over secure lines. My office door was closed and no one else was present in the room with me.Patient (or authorized healthcare major account representative) provided consent to proceed with the visit, expressed an understanding of privacy and security of the telemedicine visit, and gave permission to have a hospital major account representative in the room in order to assist with the visit and to conduct portions of the visit, as needed. I informed the patient (or authorized healthcare major account representative) that I reviewed their record and presented the opportunity for them to ask any questions regarding the visit today. The patient agreed to participate. Assessment & Plan (1) Abdominal fluid collection: Plan: 63-year-old female with a fluid collection in her pelvic region without overt signs of infections WBC, fevers. Drainage resembled cloudy yellow fluid, stain does have PMNs however no organisms, currently without growth, most recent abdominal surgery proximally 20 years ago. She was placed on Zosyn for presumed abscess, drain is still in place. After discussion with the patient and review of chart an abscess is on the differential however not highly so, other et iologies such as fistula or general inflammation due to alternative cause are possibilities as well. In any case we will treat for presumed infection and if collection resolves there is less likely to be alternative etiology. If patient does not improve with a prolonged course of antibiotics, alternative causes should be suspected. patient is agreeable to undergo 4 weeks of p.o. antibiotics, she will follow up with us in the clinic after a repeat CT scan to evaluate. Drain to remain in place per Interventional Radiology. Follow up appointment can be with telehealth given her distance to [facility]. - discontinue Zosyn - Augmentin 875 q.8 hours for 4 weeks - ciprofloxacin 500 mg p.o. q.12 hours for 4 weeks - CT scan with oral and IV contrast of the abdomen and pelvis in 2-3 weeks - follow-up Infectious Disease appointment, telehealth okay after scan is completed in approximately 3-4 weeks Appreciate consultation, please do not hesitate to reach out for any further questions or concerns. Erik Johnson MD PGY4 Infectious Disease History of Present Illness History of Present Illness 63-year-old female presents to the ER for abdominal pain, rectal pain, tenesmus, pelvic pressure with a past medical history of hysterectomy 2004. Pain has been increasing over the past 7 days, CT abdomen/pelvis with IV contrast showing a 6 cm complex loculated fluid collection along the superior margin of vaginal cuff. Patient did not have any change in her diet, she did not have any fevers, chi lls, night sweats, dizziness or lightheadedness. Patient underwent drainage from IR with 33 mm of cloudy yellow fluid, pigtail drain is in place with very scant serous discharge. Culture currently without growth, stain with many PMNs and no organisms. Patient denies any recent surgical procedures, she did initially seek help from her PCP who instructed her to use MiraLax for presumed severe constipation. Allergies Allergy/AdvReac Type Severity Reaction Status Date / Time No Known Allergies Allergy Unverified 03/27/24 18:30 Home Medications Medication Instructions Recorded Confirmed Type aspirin 81 mg tablet,delayed 81 mg PO QAM 03/27/24 03/27/24 History release rosuvastatin 10 mg tablet 10 mg PO QAM 03/27/24 03/27/24 History Saccharomyces boulardii 250 mg 250 mg PO DAILY #30 caps 03/29/24 Rx capsule (Daily Probiotic (S. boulardii)) amoxicillin 875 mg-potassium 1 tab PO BID #60 tabs 03/29/24 Rx clavulanate 125 mg tablet ciprofloxacin HCl 500 mg tablet 500 mg PO BID #60 tabs 03/29/24 Rx Patient History Surgical History History of total abdominal hysterectomy Hx of colonoscopy Hx of repair of rotator cuff Family History Other Breast cancer Diabetes Heart disease Social History Smoking Status: Never smoker Second Hand Exposure: No; Hx Alcohol Use: Yes Alcohol type: wine Hx Substance Use: No Preferred Language: Andorran Communication Ability: Effective Hazardous Materials Analyst Required: No Beliefs That Will Affect Care: None Current Living Situation: Spouse Feels Safe at Home: Yes Assistive Devices: None Review of Systems CONSTITUTIONAL: Denies weight loss, fever and chills. HEENT: Denies changes in vision and hearing. RESPIRATORY: Denies SOB and cough. CV: Denies palpitations and CP. GI: Denies abdominal pain, nausea, vomiting and diarrhea. : Denies dysuria and urinary frequency. MSK: Denies myalgia and joint pain. SKIN: Denies rash and pruritus. NEUROLOGICAL: Denies headache and syncope PSYCHIATRIC: Denies recent changes in mood. Denies anxiety and depression. Results & Data Vital Signs (Past 12 Hours) Vital Signs Temp Pulse Pulse Resp BP Pulse Ox O2 Del Method 03/29/24 12:32 36.7 C 56 L 16 134/84 96 Room Air 03/29/24 09:02 36.6 C 64 14 120/77 94 Room Air 03/29/24 07:11 36.9 C 59 L 18 103/66 94 Room Air Diagnostic Findings 03/28/24 12:50 Gram Stain - Final Abdomen Aerobic and Anaerobic Culture - Preliminary No growth to date. 03/27/24 21:10 Aerobic Blood Culture - Preliminary Blood No growth in Aerobic bottle after 24 hours. Anaerobic Blood Culture - Preliminary No growth in Anaerobic bottle after 24 hours. 03/27/24 20:58 Aerobic Blood Culture - Preliminary Blood No growth in Aerobic bottle after 24 hours. Anaerobic Blood Culture - Preliminary No growth in Anaerobic bottle after 24 hours. 03/27/24 Unknown Urine Culture - Final Urine,Clean Catch More than three types of organisms present, all moderate counts mixed probable skin megan. No further identifications or sensitivities to follow. 03/29/24 05:40 WBC 8.12 RBC 4.11 L Hgb 12.3 Hct 37.2 MCV 90.5 MCH 29.9 MCHC 33.1 RDW Std Deviation 40.5 RDW Coeff of Mary 12.3 Plt Count 243 MPV 10.5 Immature Gran % (Auto) 0.4 Neut % (Auto) 60.0 Lymph % (Auto) 28.2 [place] % (Auto) 7.1 Eos % (Auto) 3.7 Baso % (Auto) 0.6 Neut # (Auto) 4.87 Lymph # (Auto) 2.29 [place] # (Auto) 0.58 Eos # (Auto) 0.30 Baso # (Auto) 0.05 Immature Gran # (Auto) 0.03 Sodium 139 Potassium 4.0 Chloride 106 Carbon Dioxide 27 Anion Gap 6 BUN 14 Creatinine 0.98 Est Cr Clr Drug Dosing 66.3 Est GFR ( Amer) 72.2 Est GFR (Non-Af Amer) 62.3 BUN/Creatinine Ratio 14.3 Glucose 102 H Calcium 8.8
== END 2024-03-29 15:23 | disposition home or self-care (01) | DRG 373 ==
LOC: ED 14:30 → 3W 19:28 → SUATTDRO 19:28 → 3W 20:24
DX: E78.5 Hyperlipidemia, unspecified; Z79.899 Other long term (current) drug therapy; K65.1 Peritoneal abscess; Z90.710 Acquired absence of both cervix and uterus; R19.7 Diarrhea, unspecified